=== PATIENT | female | born 1965 | race Caucasian/White ===

== ENCOUNTER 2019-03-30 21:54 | Emergency (ER) | payer BC, OTHER ==
[2019-03-30 23:06] LABS: Urine Appearance Clear; Urine Bilirubin Negative (Negative); Urine Blood 2+ (Negative); Urine Color Straw; Urine Glucose Negative (Negative); Urine Ketones Negative (Negative); Urine Nitrite Negative (Negative); Urine Protein Negative (Negative); Urine Specific Gravity 1.006 (1.010-1.030); Urine Urobilinogen Negative (Negative)
[2019-03-30 23:08] LABS: Urine Bacteria Absent (Absent); Urine Red Blood Cell Trace(0-2/hpf) (Absent); Urine Squamous Epithelial Cell Present (Absent); Urine White Blood Cell Trace(0-5/hpf) (Absent)
--- NOTE | 2019-03-30 23:28 | ED ---
Complex/Multi-Sys Presentation - HPI Summary HPI Summary: This patient is a 53 year old F presenting to [facility] by EMS accompanied by and daughter with a chief complaint of feeling unwell since waking up this am. Pt felt normal on 03/29/2019. Pt did not eat well today; she only ate cinnamon raisin toast, soup and small amount of her dinner. Patient reports fatigue, shaking, chills, chronic back pain, neck pain, ringing in right ear. Patient denies CP, SOB, N/V/D, fever, APPIAH, and change in vision. Pt recently had a stent placed in LED artery on 03/19/2019, after having an CO. Pt had blockages and was transported to [facility] from [place]. she had her metoprolol dose doubled after stent. she also notes she asked for something for anxiety. Pt was placed on paxil 3 days ago, and it kept her up all night on 03/28. So instead of taking it at night on 03/29/2019; she took it today morning. She has only had two dosages of Paxil. Pt quit smoking, does not drink alcohol or do drugs. Pt is allergic to nitro. Pt has FHx of diabetes, CA, HTN, thyroid issues, and cardiac disease. Pt has PMHx peripheral artery disease, thyroid disease, and high cholesterol. - History Of Current Complaint Chief Complaint: EDGeneral Time Seen by Provider: 03/30/19 22:53 Hx Obtained From: Patient, Family/Staple Cutter Onset/Duration: Sudden Onset, Lasting Hours Timing: Constant Severity Currently: None Location: Negative Associated Signs And Symptoms: Positive: Back Pain, Decreased Oral Intake, Recent Medication Changes, Other - fatigue, shaking, chills. Negative: Headache , SOB, Chest Pain, Nausea, Vomiting, Diarrhea, Fever - Allergies/Home Medications Allergies/Adverse Reactions: Allergies Allergy/AdvReac Type Severity Reaction Status Date / Time nitroglycerin Allergy Severe See Comment Verified 03/30/19 21:59 Home Medications: Home Medications Aspirin 81 mg CHEW TAB* [Aspirin Low Dose TAB*] 81 mg PO DAILY 03/30/19 [ History Confirmed 03/30/19] Atorvastatin* [Lipitor*] 80 mg PO QPM 03/30/19 [History Confirmed 03/30/19] Cyanocobalamin (Vitamin B-12) [Vitamin B-12] 1,000 mcg SL DAILY 03/30/19 [ History Confirmed 03/30/19] Hydrocortisone 2.5% CREAM(NF) 1 applic TOPICAL BID 03/30/19 [History Confirmed 03/30/19] Levothyroxine Sodium 50 mcg PO DAILY 03/30/19 [History Confirmed 03/30/19] Metoprolol Succinate XL TAB* [Toprol XL TAB*] 25 mg PO DAILY 03/30/19 [History Confirmed 03/30/19] PARoxetine HCl [Paxil] 10 mg PO QPM 03/30/19 [History Confirmed 03/30/19] Prasugrel HCl [Prasugrel] 10 mg PO DAILY 03/30/19 [History Confirmed 03/30/19] PMH/Surg Hx/FS Hx/Imm Hx Endocrine/Hematology History: Reports: Hx Thyroid Disease Cardiovascular History: Reports: Hx Hypercholesterolemia Sensory History: Denies: Hx Deafness Opthamlomology History: Denies: Hx Legally Blind - Surgical History Surgical History: Yes Surgery Procedure, Year, and Place: tubal ligation, teeth removed Infectious Disease History: No Infectious Disease History: Denies: Traveled Outside the [place] in Last 30 Days - Family History Known Family History: Positive: Cardiac Disease, Diabetes, Other - CA - Social History Lives: With Family Alcohol Use: None Substance Use Type: Reports: None Smoking Status (MU): Former Smoker - Additional Comments History Additional Comments: PMHx : peripheral artery disease, thyroid, and high cholesterol. Home Medications Medication Instructions Recorded Confirmed Type Aspirin 81 mg CHEW TAB* [Aspirin 81 mg PO DAILY 03/30/19 03/30/19 History Low Dose TAB*] Atorvastatin* [Lipitor*] 80 mg PO QPM 03/30/19 03/30/19 History Cyanocobalamin (Vitamin B-12) 1,000 mcg SL DAILY 03/30/19 03/30/19 History [Vitamin B-12] Hydrocortisone 2.5% CREAM(NF) 1 applic TOPICAL BID 03/30/19 03/30/19 History Levothyroxine Sodium 50 mcg PO DAILY 03/30/19 03/30/19 History Metoprolol Succinate XL TAB* 25 mg PO DAILY 03/30/19 03/30/19 History [Toprol XL TAB*] PARoxetine HCl [Paxil] 10 mg PO QPM 03/30/19 03/30/19 History Prasugrel HCl [Prasugrel] 10 mg PO DAILY 03/30/19 03/30/19 History Review of Systems Positive: Chills, Fatigue, Other - Shaking, decreased oral intake. Negative: Fever Negative: Blurred Vision Positive: Other - ringing in R ear Negative: Chest Pain Negative: Shortness Of Breath Negative: Vomiting, Diarrhea, Nausea Positive: Other - neck pain, chronic back pain Negative: Headache All Other Systems Reviewed And Are Negative: Yes Physical Exam - Summary Physical Exam Summary: General: Well-developed, Well-nourished female. No acute distress. HEENT: Normocephalic, Atraumatic. Eyes: Conjuctiva normal, PERRL. Oropharynx: Clear, mucous membranes moist, (-) exudates. Neck: Soft, FROM, (-) lymphadenopathy, (-) thyromegaly, (-) JVD. Cardiovascular: Normal sinus rhythm, (-) murmur. Lungs: Decreased breath sounds bilaterally (-) wheezes, (-) rales, (-) rhonchi. Abdomen: Soft, non-tender, non-distended, (-) organomegaly, normal bowel sounds. Back: (-) CVA tenderness Extremities: Trace edema in lower extremities Skin: Warm, dry, (-) rash. Neuro: Alert and oriented x3, moves all extremities equally. No ataxia. No gait disturbance. No sensory deficit. No amnesia. Psychiatric: Mood normal, Flat affect. Triage Information Reviewed: Yes Vital Signs On Initial Exam: Initial Vitals Temp Pulse Resp BP Pulse Ox 98.2 F 60 12 176/76 94 03/30/19 21:56 03/30/19 21:56 03/30/19 21:56 03/30/19 21:56 03/30/19 21:56 Vital Signs Reviewed: Yes Procedures - Sedation Patient Received Moderate/Deep Sedation with Procedure: No Diagnostics - Vital Signs Vital Signs Temp Pulse Resp BP Pulse Ox 03/30/19 22:30 67 17 170/85 92 03/30/19 22:01 66 19 176/76 93 03/30/19 22:00 11 03/30/19 21:56 98.2 F 60 12 176/76 94 - Laboratory Lab Results: Lab Results 03/30/19 Range/Units 22:58 Urine Color Straw Urine Appearance Clear Urine pH 7.0 (5-9) Ur Specific [place] 1.006 L (1.010-1.030) Urine Protein Negative (Negative) Urine Ketones Negative (Negative) Urine Blood 2+ A (Negative) Urine Nitrate Negative (Negative) Urine Bilirubin Negative (Negative) Urine Urobilinogen Negative (Negative) Ur Leukocyte Esterase Negative (Negative) Urine WBC (Auto) Trace(0-5/hpf) (Absent) Urine RBC (Auto) Trace(0-2/hpf) (Absent) Ur Squamous Epith Cells Present A (Absent) Urine Bacteria Absent (Absent) Urine Glucose Negative (Negative) Result Diagrams: 03/30/19 23:30 03/30/19 23:30 Lab Statement: Any lab studies that have been ordered have been reviewed, and results considered in the medical decision making process. - Radiology CXR Radiology Interpretation Completed By: ED Physician Summary of Radiographic Findings: CXR reveals per ED physician No infiltrate. No pleural effusion. Pending official radiology report. - EKG 2345 Cardiac Rate: Bradycardia EKG Rhythm: Sinus Bradycardia Summary of EKG Findings: EKG at 23:45 reveals sinus bradycardia with rate of 54 BPM, T wave depression in V2- V6, no previous EKGs. No STEMI. This EKG was reviewed and interpreted by Dr. Kumar. Re-Evaluation - Re-Evaluation First Eval Re-Evaluation Time: 03:17 Comment: Discussed results with pt, and plan of care. Complex Multi-Symp Course/Dx Course Of Treatment: 53-year-old female presents from home with a vague history of not feeling well today. She states she felt fine before today. She notes she had a cardiac stent placed 8 days ago. Had an CO. Was seen at [facility] and transferred to [facility]. She had some medication changes at that time.today states she felt shaky and tired. Just not well. No chest pain. No shortness of breath. No fevers or chills. Physical exam is essentially unremarkable. Workup demonstrates a slightly elevated white count at 11. Negative chest x-ray. Discussed at length with patient. She strongly feels that her symptoms are due to Paxil. She states she took her first dose of Paxil on am of March 28. she states it made her feel not well. So instead of taking it the next morning she waited until that night, which was last night. patient states she will hold the medicine and see how she feels. i advised her that she should discuss with her doctor and not change her medicines on her own. patient discharged to home. Advised follow-up with [facility]CP[facility] for any worsening symptoms. - Diagnoses Provider Diagnoses: Weakness Discharge ED - Sign-Out/Discharge Documenting (check all that apply): Patient Departure - Discharge - Discharge Plan Condition: Stable Disposition: HOME Patient Education Materials: Weakness (ED) Referrals: [facility] [Outside] - 3 Days Additional Instructions: Please follow up with your primary care physician within three days. Please return to ED for any new or worsening symptoms. - Billing Disposition and Condition Condition: STABLE Disposition: Home - Attestation Statements Document Initiated by Andreibe: Yes Documenting Scribe: Grace Kruse Provider For Whom Astrid is Documenting (Include Credential): Dr. Samia Kumar MD Scribe Attestation: Grace Diehl scribed for Dr. Samia Kumar MD on 03/31/19 at 0629. Scribe Documentation Reviewed: Yes Provider Attestation: The documentation as recorded by the Grace suresh accurately reflects the service I personally performed and the decisions made by me, Dr. Samia Kumar MD Status of Scribe Document: Viewed
[2019-03-30 23:45] LABS: ABS Basophils 0.1 10^3/ul (0-0.2); ABS Lymphocytes 1.6 10^3/ul (1.0-4.8); ABS Monocytes 0.4 10^3/ul (0-0.8); Eosinophil % 0.2 %; Hematocrit 42 % (35-47); Lymphocyte % 14.4 %; Mean Corpuscular HGB Conc 34 g/dL (31-36); Mean Corpuscular Hemoglobin 33 pg (27-31); Mean Corpuscular Volume 99 fL (80-97); Mean Platelet Volume 8.3 fL (7.4-10.4); Platelet Count 378 10^3/uL (150-450); Red Blood Count 4.23 10^6 /uL (3.70-4.87); Red Cell Distribution Width 15 % (10-15)
[2019-03-30 23:53] LABS: INR 0.98 (0.82-1.09)
[2019-03-31 00:03] LABS: Albumin 3.9 g/dL (3.2-5.2); Albumin/Globulin Ratio 1.1 (1-3); BUN/Creatinine Ratio 21.2 (8-20); Calcium 8.9 mg/dL (8.6-10.3); EGFR African American 112.5 (>60); Globulin 3.4 g/dL (2-4); Total Bilirubin 0.3 mg/dL (0.2-1.0); Total Protein 7.3 g/dL (6.4-8.9)
[2019-03-31 00:16] LABS: TSH (Thyroid Stimulating Horm) 2.44 mcIU/mL (0.34-5.60)
[2019-03-31 03:53] VITALS: BP 152/77
== END 2019-03-31 03:53 | disposition home or self-care (01) ==
LOC: ED 21:54
DX: R53.83 Other fatigue (principal); M54.9 Dorsalgia, unspecified; G89.29 Other chronic pain; M54.2 Cervicalgia; E03.9 Hypothyroidism, unspecified; E78.00 Pure hypercholesterolemia, unspecified; R25.1 Tremor, unspecified; Z87.891 Personal history of nicotine dependence; Z79.82 Long term (current) use of aspirin; Z88.8 Allergy status to other drugs, medicaments and biological substances; Z79.890 Hormone replacement therapy; Z79.899 Other long term (current) drug therapy; I73.9 Peripheral vascular disease, unspecified; Z95.5 Presence of coronary angioplasty implant and graft; I25.2 Old myocardial infarction; R94.31 Abnormal electrocardiogram [ECG] [EKG]
CPT/HCPCS: 36415; 71045; 80053; 81003; 81015; 83605; 83735; 83880; 84443; 84484; 85025; 85610; 87040; 87086; 93005; 99284